=== PATIENT | male | born 1950 | race American Indian/Alaskan Native ===

== ENCOUNTER → 2018-01-29 | Outpatient (CLI) | payer MEDICARE ==
[2018-01-29 15:24] LABS: Basophils # (A) 0.1 k/uL (0-0.2); Basophils % (A) 1 %; Eosinophils # (A) 1.7 k/uL (0-0.7); Eosinophils % (A) 16 %; HCT 48.1 % (39.0-53.0); HGB 15.4 gm/dL (13.0-17.5); Lymphocytes # (A) 2.6 k/uL (1.0-4.8); Lymphocytes % (A) 24 %; MCH 29.3 pg (25.0-35.0); MCV 91.4 fL (80.0-100.0); Mean Platelet Volume 7.2; Monocytes # (A) 0.6 k/uL (0-1.0); Monocytes % (A) 6 %; Neutrophils # (A) 5.6 k/uL (1.3-7.7); Neutrophils % (A) 52 %; Platelet Count 251 k/uL (150-450); RBC 5.26 m/uL (4.30-5.90); RDW 13.4 % (11.5-15.5); WBC 10.7 k/uL (3.8-10.6)
[2018-01-29 15:36] LABS: Total Eosinophil Count 171 #EOS/uL (150-300)
== END | disposition home or self-care (01) ==
LOC: LABWHC1 14:59
PROVIDERS: ATTEND Internal Medicine Critical Care Medicine
DX: R06.09 Other forms of dyspnea (principal)
CPT/HCPCS: 36415; 82785; 85008; 85025

== ENCOUNTER → 2018-02-09 | Outpatient (CLI) | payer MEDICARE ==
[2018-02-09 15:55] LABS: Blood Urea Nitrogen 19 mg/dL (9-20)
--- NOTE | 2018-02-09 16:32 | CT ---
EXAMINATION TYPE: CT chest w con DATE OF EXAM: 02/09/2018 COMPARISON: None HISTORY: Dyspnea on exertion. CT DLP: 319.2 mGycm, Automated exposure control for dose reduction was used. CONTRAST: Performed injected with 100ml mL of Isovue 300. TECHNIQUE: Axial images were obtained at 5 mm thick sections. Reconstructed images are reviewed on [employer] computer in the coronal plane. FINDINGS: Portion of the thyroid visualized is normal. No suspicious lung nodules or focal infiltrates are present. No enlarged mediastinal or hilar adenopathy is evident. Couple small lymph nodes are present. The a scending aorta diameter at the level of the main pulmonary artery is 4.0 cm. This tapers throughout its visualized course. Vascular calcification is noted within the aorta. The main pulmonary artery di ameter at the bifurcation is 1.[address] sections are obtained through the upper abdomen. Abdomen is essentially unremarkable. Smal l hiatal hernia is present. IMPRESSIONS: 1. Ascending thoracic aortic aneurysm measuring 4.0 cm of the main pulmonary artery. 2. No acute pulmonary process.
== END | disposition home or self-care (01) ==
LOC: RADCTMAIN 15:32
PROVIDERS: ATTEND Internal Medicine Critical Care Medicine
DX: I71.2 Thoracic aortic aneurysm, without rupture (principal)
CPT/HCPCS: 82565; 84520; 71260; 36415; Q9967

== ENCOUNTER → 2018-07-29 | Outpatient (CLI) | payer MEDICARE ==
[2018-07-29 11:43] LABS: Basophils % (A) 0 %; Eosinophils # (A) 1.5 k/uL (0-0.7); Eosinophils % (A) 15 %; HCT 44.6 % (39.0-53.0); HGB 14.6 gm/dL (13.0-17.5); Lymphocytes # (A) 2.6 k/uL (1.0-4.8); Lymphocytes % (A) 26 %; MCHC 32.8 g/dL (31.0-37.0); MCV 91.5 fL (80.0-100.0); Mean Platelet Volume 7.9; Monocytes # (A) 0.6 k/uL (0-1.0); Monocytes % (A) 6 %; Neutrophils # (A) 5.1 k/uL (1.3-7.7); Neutrophils % (A) 51 %; Platelet Count 223 k/uL (150-450); RBC 4.88 m/uL (4.30-5.90)
[2018-07-29 11:46] LABS: Total Eosinophil Count 1493 #EOS/uL (150-300)
== END | disposition home or self-care (01) ==
LOC: LABWHC1 11:14
PROVIDERS: ATTEND Internal Medicine Critical Care Medicine
DX: J82 Pulmonary eosinophilia, not elsewhere classified (principal)
CPT/HCPCS: 36415; 82785; 85008; 85025

== ENCOUNTER → 2018-08-05 | Day surgery (SDC) | payer MEDICARE ==
[2018-08-03 15:58] VITALS: BMI 28.4
[~2018-08-05] MED LIST: LACTATED RINGERS 1,000 ML IV SCH; LIDOCAINE 1% INJ 10MG/ML (20 ML MDV) ONE; PROPOFOL 10 MG/ML 20 ML VIAL IV ONE
[2018-08-05 08:47] VITALS: TEMP 97.4
[2018-08-05 08:50] LABS: Glucose,Whole Blood 129 mg/dL (75-99)
[2018-08-05 09:11] VITALS: RESP 17
--- NOTE | 2018-08-05 09:21 | P.PCN ---
Date of Procedure: 08/05/18 Procedure(s) Performed: BRIEF HISTORY: Patient is a 68-year-old, pleasant, male, scheduled for an upper endoscopy as a part of surveillance of Rizvi's esophagus. He does have long- standing history of GERD and has been on Prilosec 20 mg daily. Last upper endoscopy in 2 years ago showed short segment Rizvi's esophagus with no dysplasia.. PROCEDURE PERFORMED: Esophagogastroduodenoscopy with biopsy. PREOPERATIVE DIAGNOSIS: Rizvi's esophagus/GERD. IV sedation per anesthesia. PROCEDURE: After informed consent was obtained, the patient was brought into the endoscopy unit. IV sedation was administered by Anesthesia under continuous monitoring. Initially the Olympus GIF-140 video endoscope was inserted into the mouth. Esophagus intubated without any difficulty. It was gradually advanced into the stomach and duodenum and carefully examined. The bulb and the second part of the duodenum appeared normal. The scope at this time was withdrawn to the stomach, adequately insufflated with air, and upon careful examination, mucosa of the antrum, P normal. In the gastric body there were multiple small polyps noted which was biopsied. The rest of the body, cardia and the fundus appeared normal. The scope was then withdrawn into the esophagus. The GE junction was located at 37 cm from the incisors. A short segment of Rizvi's esophagus extending proximal to the GE junction measuring about 3-4 mm in length and also couple of islands of Rizvi's-appearing mucosa which were all biopsied . The rest of the esophagus appeared normal. There were no erosions or ulcerations seen and the patient tolerated the procedure well. IMPRESSION: 1. Short segment Rizvi's esophagus status post biopsy. 2. Moderate size hiatal hernia. 3. Multiple small gastric polyps status post biopsy RECOMMENDATIONS: The findings of this examination were discussed with the patient as well as her family. He was advised to follow with the biopsies don't. If the biopsy confirms the presence of Rizvi's esophagus, he can have a repeat upper endoscopy in 2-3 years. He will continue with Prilosec 20 mg daily and follow antireflux measures.
[2018-08-05 09:32] VITALS: BP 112/60; PULSE 62
== END | disposition home or self-care (01) ==
LOC: ORWHC2ENDO 08:25
PROVIDERS: ATTEND Internal Medicine Gastroenterology
DX: K29.50 Unspecified chronic gastritis without bleeding (principal); K22.70 Barrett's esophagus without dysplasia; K31.7 Polyp of stomach and duodenum; K44.9 Diaphragmatic hernia without obstruction or gangrene; E11.9 Type 2 diabetes mellitus without complications; N40.0 Benign prostatic hyperplasia without lower urinary tract symptoms; I10 Essential (primary) hypertension; E78.5 Hyperlipidemia, unspecified; Z79.84 Long term (current) use of oral hypoglycemic drugs; Z79.899 Other long term (current) drug therapy; Z79.52 Long term (current) use of systemic steroids
CPT/HCPCS: 88305; 43239; J2001; J2704

== ENCOUNTER → 2019-04-29 | Outpatient (CLI) | payer MEDICARE ==
[2019-04-29 14:36] LABS: African American GFR (CKD) >90 (>60 ml/min/1.73 sqM); Anion Gap 10 mmol/L; Blood Urea Nitrogen 16 mg/dL (9-20); Calcium 9.9 mg/dL (8.4-10.2); Carbon Dioxide 29 mmol/L (22-30); Chloride 99 mmol/L (98-107); Glucose 131 mg/dL (74-99); Non-African American GFR(CKD) 89 (>60 ml/min/1.73 sqM); Sodium 138 mmol/L (137-145)
[2019-04-29 14:42] LABS: Potassium 5.6 mmol/L (3.5-5.1)
--- NOTE | 2019-04-29 15:19 | CT ---
EXAMINATION TYPE: CT angio chest DATE OF EXAM: 04/29/2019 COMPARISON: 02/09/2018 HISTORY: 68-year-old male follow-up Ascending thoracic aortic aneurysm. TECHNIQUE: Contiguous axial scanning of the chest performed without and with IV Contrast, patient inj ected with 100ml mL of Isovue 370. Coronal/sagittal MIP reconstructions performed. 3-D reconstruction s generated on a dedicated independent workstation. CT DLP: 618 mGycm Automated exposure control for dose reduction was used. FINDINGS: Heart normal size without pericardial effusion. Prominent epicardial fat pad on the left. Stable mild aneurysm ascending aorta at 4.0 cm. Mild atherosclerotic arch calcifications with convent ional branching anatomy. Initial noncontrast scan shows no evidence for acute intramural hematoma. No thoracic lymphadenopathy by CT size criteria. Some peribronchial cuffing centrally at the herson. No consolidation or pleural effusion. Small hiatal hernia. Hilar splenule. Cholecystectomy clips. 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 Stabl e scattered mild endplate deformities compatible with chronic injuries. Old healed fracture of the st ernal manubrium. IMPRESSION: 1. Stable mild 4 cm aneurysm of the ascending aorta. 2. Mild central bronchial wall thickening could reflect bronchitis or asthma. 3. Small hiatal hernia.
== END | disposition home or self-care (01) ==
LOC: RADCTMAIN 14:00
PROVIDERS: ATTEND Family Medicine
DX: I71.2 Thoracic aortic aneurysm, without rupture (principal); K44.9 Diaphragmatic hernia without obstruction or gangrene; R93.89 Abnormal findings on diagnostic imaging of other specified body structures; E11.42 Type 2 diabetes mellitus with diabetic polyneuropathy
CPT/HCPCS: 80048; 71275; 36415; Q9967

== ENCOUNTER → 2020-03-14 | Outpatient (CLI) | payer MEDICARE ==
[2020-03-14 08:42] LABS: Basophils # (A) 0.1 k/uL (0-0.2); Basophils % (A) 1 %; Eosinophils # (A) 0.1 k/uL (0-0.7); Eosinophils % (A) 1 %; HCT 44.1 % (39.0-53.0); HGB 14.8 gm/dL (13.0-17.5); Lymphocytes # (A) 1.8 k/uL (1.0-4.8); Lymphocytes % (A) 26 %; MCH 30.8 pg (25.0-35.0); MCHC 33.5 g/dL (31.0-37.0); MCV 91.8 fL (80.0-100.0); Mean Platelet Volume 7.6; Monocytes # (A) 0.5 k/uL (0-1.0); Monocytes % (A) 7 %; Neutrophils # (A) 4.4 k/uL (1.3-7.7); Neutrophils % (A) 63 %; Platelet Count 210 k/uL (150-450); RDW 12.8 % (11.5-15.5)
[2020-03-14 15:44] LABS: Albumin 4.6 g/dL (3.80-4.90); Albumin/Globulin Ratio 2.42 (1.60-3.17); Anion Gap 10.8 mmol/L (4.00-12.00); Calcium 9.6 mg/dL (8.7-10.3); Carbon Dioxide 27.2 mmol/L (21.6-31.8); Chol/HDL Ratio 2.89; Globulin 1.9 g/dL (1.6-3.3); LDL Cholesterol,Calculated 57.8 mg/dL (0.0-131.0); Non-African American GFR(CKD) 75.9 (60.0-200.0); Potassium 4.5 mmol/L (3.5-5.5); Total Bilirubin 0.7 mg/dL (0.3-1.2); Total Protein 6.5 g/dL (6.2-8.2); VLDL Calculation 27.2 mg/dL (5.00-40.00)
[2020-03-14 16:16] LABS: Hemoglobin A1C 6.5 % (4.0-6.0)
[2020-03-14 16:42] LABS: Urine Creatinine 118.4 mg/dL
== END | disposition home or self-care (01) ==
LOC: LABWHC1 07:43
PROVIDERS: ATTEND Family Medicine
DX: E11.9 Type 2 diabetes mellitus without complications (principal)
CPT/HCPCS: 36415; 80053; 80061; 82043; 82570; 83036; 85025

== ENCOUNTER 2021-04-25 08:42 | Day surgery (SDC) | payer MEDICARE ==
[2021-04-23 15:46] VITALS: BMI 26.6
--- NOTE | 2021-04-25 07:44 | P.GSHP ---
History of Present Illness H&P Date: 04/25/21 CHIEF COMPLAINT: Colon screen HISTORY OF PRESENT ILLNESS: The patient is a 70-year-old male who presents for colon screen. Lower endoscopy was offered for further evaluation and management. PAST MEDICAL HISTORY: Please see list. PAST SURGICAL HISTORY: Please see list. MEDICATIONS: Please see list. ALLERGIES: Please see list. SOCIAL HISTORY: No illicit drug use FAMILY HISTORY: No reports of Crohn disease or ulcerative colitis. REVIEW OF ORGAN SYSTEMS: CONSTITUTIONAL: No reports of fevers or chills. PHYSICAL EXAM: VITAL SIGNS: Stable GENERAL: Well-developed pleasant in no acute distress. HEENT: No scleral icterus. Extraocular movements grossly intact. Moist buccal mucosa. NECK: Supple without lymphadenopathy. CHEST: Unlabored respirations. Equal bilateral excursions. CARDIOVASCULAR: Regular rate and rhythm. Distal 2+ pulses. ABDOMEN: Soft, nontender, nondistended. MUSCULOSKELETAL: No clubbing, cyanosis, or edema. ASSESSMENT: 1. Colon screen. PLAN: 1. Recommend proceeding with a lower endoscopy Past Medical History Past Medical History: Asthma, GERD/Reflux, Seizure Disorder Additional Past Medical History / Comment(s): PAST HX OF SEIZURES, NONE FOR YEARS, NO MEDS, HAS HAD TO HAVE ESOPHAGUS DILATED IN PAST, NO DYSPHAGIA AT PRESENT History of Any Multi-Drug Resistant Organisms: None Reported Past Surgical History: Cholecystectomy, Hernia Repair Additional Past Surgical History / Comment(s): EGDs Past Anesthesia/Blood Transfusion Reactions: No Reported Reaction Smoking Status: Never smoker - Past Family History Sister(s) Family Medical History: Cancer Mother Additional Family Medical History / Comment(s): heart problems Medications and Allergies Home Medications Medication Instructions Recorded Confirmed Type Budesonide [Pulmicort] 1 applic INHALATION BID 12/10/13 04/25/21 History Calcium Carbonate/Vitamin D3 1 tab PO DAILY 12/10/13 04/25/21 History [Caltrate 600 + D Tablet] Omeprazole [PriLOSEC] 40 mg PO DAILY 12/10/13 04/25/21 History Simvastatin [Zocor] 40 mg PO DAILY 12/10/13 04/25/21 History Albuterol Sulfate [Proair Hfa] 1 - 2 puff INHALATION Q6HR PRN 08/03/18 04/25/21 History Tamsulosin [Flomax] 0.4 mg PO HS 08/03/18 04/25/21 History metFORMIN HCL [Glucophage] 1,000 mg PO BID 08/03/18 04/25/21 History Benralizumab [Fasenra] 30 mg SQ Q60D 04/23/21 04/25/21 History Cholecalciferol (Vitamin D3) 75 mcg PO DAILY 04/23/21 04/25/21 History [Vitamin D3 (3000 Iu)] Formoterol Fumarate [Perforomist] 20 mcg INHALATION BID 04/23/21 04/25/21 History Ipratropium-Albuterol Nebulize 3 ml INHALATION HS 04/23/21 04/25/21 History [Duoneb 0.5 mg-3 mg/3 ml Soln] lisinopriL [Zestril] 1 tab PO DAILY 04/25/21 04/25/21 History Allergies Allergy/AdvReac Type Severity Reaction Status Date / Time No Known Allergies Allergy Verified 04/25/21 07:19
--- NOTE | 2021-04-25 08:14 | P.OP ---
Date of Procedure: 04/25/21 Description of Procedure: PREOPERATIVE DIAGNOSIS: Colonoscopy screening POSTOPERATIVE DIAGNOSIS: Tubular adenoma midtransverse colon Sigmoid diverticulosis OPERATION: Colonoscopy to the ileocecal valve and appendiceal orifice, cecum Colonoscopy with hot snare polypectomy SURGEON: Amalia Myers MD. ANESTHESIA: MAC. INDICATIONS: The patient is an 70-year-old male who presents for screening. Last colonoscopy 10 years. Benefits and risks were described and informed consent was obtained. DESCRIPTION OF PROCEDURE: The patient had undergone Sutab prep. The patient had been brought into the operating room and laid in the left lateral decubitus position. After adequate intravenous sedation, the rectum was examined with 2% lidocaine jelly. The prostate was unremarkable. External hemorrhoids were encountered. The rectal tone was within normal limits. No lesions were palpated in the rectal vault. An Olympus colonoscope was advanced until the cecum, ileocecal valve and appendiceal orifice were clearly viewed. The prep was fair. Sigmoid diverticulosis was encountered. Colonic polyps were found and removed. No evidence of focal colitis was found. Retroflexion of the scope demonstrated grade 2 internal hemorrhoids without active bleeding or inflammation. The colon was desufflated. The patient had tolerated the procedure well. Withdrawal time was over 6 minutes. FINDINGS: Aronchick preparation quality scale 2 (1-5) Internal hemorrhoids, grade 2 External hemorrhoids, grade 2. No arteriovenous malformations. Sigmoid diverticulosis Removal of 1 polyps: - Snare polypectomy midtransverse colon, 5 mm tubulovillous adenoma polyp. No focal colitis. RECOMMENDATIONS: Repeat colonoscopy 5 years, 2025 Plan - Discharge Summary Discharge Rx Participant: No New Discharge Prescriptions: Continue Simvastatin [Zocor] 40 mg PO DAILY Omeprazole [PriLOSEC] 40 mg PO DAILY Calcium Carbonate/Vitamin D3 [Caltrate 600 Plus D3 Tablet] 1 tab PO DAILY Budesonide [Pulmicort] 1 applic INHALATION BID Albuterol Sulfate [Proair Hfa] 1 - 2 puff INHALATION Q6HR PRN PRN Reason: Wheezing Tamsulosin [Flomax] 0.4 mg PO HS metFORMIN HCL [Glucophage] 1,000 mg PO BID Ipratropium-Albuterol Nebulize [Duoneb 0.5 mg-3 mg/3 ml Soln] 3 ml INHALATION HS Cholecalciferol (Vitamin D3) [Vitamin D3 (3000 Iu)] 75 mcg PO DAILY Benralizumab [Fasenra] 30 mg SQ Q60D Formoterol Fumarate [Perforomist] 20 mcg INHALATION BID lisinopriL [Zestril] 1 tab PO DAILY Discharge Medication List Budesonide [Pulmicort] 1 applic INHALATION BID 12/10/13 [History] Calcium Carbonate/Vitamin D3 [Caltrate 600 Plus D3 Tablet] 1 tab PO DAILY 12/10/13 [History] Omeprazole [PriLOSEC] 40 mg PO DAILY 12/10/13 [History] Simvastatin [Zocor] 40 mg PO DAILY 12/10/13 [History] Albuterol Sulfate [Proair Hfa] 1 - 2 puff INHALATION Q6HR PRN 08/03/18 [History] Tamsulosin [Flomax] 0.4 mg PO HS 08/03/18 [History] metFORMIN HCL [Glucophage] 1,000 mg PO BID 08/03/18 [History] Benralizumab [Fasenra] 30 mg SQ Q60D 04/23/21 [History] Cholecalciferol (Vitamin D3) [Vitamin D3 (3000 Iu)] 75 mcg PO DAILY 04/23/21 [History] Formoterol Fumarate [Perforomist] 20 mcg INHALATION BID 04/23/21 [History] Ipratropium-Albuterol Nebulize [Duoneb 0.5 mg-3 mg/3 ml Soln] 3 ml INHALATION HS 04/23/21 [History] lisinopriL [Zestril] 1 tab PO DAILY 04/25/21 [History] Follow up Appointment(s)/Referral(s): Amalia Myers MD [STAFF PHYSICIAN] - As Needed Patient Instructions/Handouts: Colorectal Polyps (DC), Diverticulosis Diet (GEN), Diverticulosis (DC) Activity/Diet/Wound Care/Special Instructions: Repeat colonoscopy in 5 years, 2025 Discharge Disposition: HOME SELF-CARE
[2021-04-25 08:22] VITALS: TEMP 98.5
[~2021-04-25 08:42] MED LIST changes: +LIDOCAINE 1% (10MG/ML) FOR IV START INTRADERMA ONE; -LIDOCAINE 1% INJ 10MG/ML (20 ML MDV) ONE
[2021-04-25 08:48] VITALS: BP 110/68; PULSE 77; RESP 20
== END 2021-04-25 08:49 | disposition home or self-care (01) ==
LOC: ORWHC2ENDO 08:42
PROVIDERS: ATTEND Surgery Plastic and Reconstructive Surgery
DX: Z12.11 Encounter for screening for malignant neoplasm of colon (principal); K57.30 Diverticulosis of large intestine without perforation or abscess without bleeding; D12.3 Benign neoplasm of transverse colon; K64.1 Second degree hemorrhoids; K64.4 Residual hemorrhoidal skin tags; J44.9 Chronic obstructive pulmonary disease, unspecified; K21.9 Gastro-esophageal reflux disease without esophagitis; G40.909 Epilepsy, unspecified, not intractable, without status epilepticus; J45.909 Unspecified asthma, uncomplicated; I10 Essential (primary) hypertension; E78.5 Hyperlipidemia, unspecified; E11.9 Type 2 diabetes mellitus without complications; N40.0 Benign prostatic hyperplasia without lower urinary tract symptoms; Z79.84 Long term (current) use of oral hypoglycemic drugs; Z79.899 Other long term (current) drug therapy
CPT/HCPCS: 88305; 45385; J2704

== ENCOUNTER → 2021-09-26 | Outpatient (CLI) | payer MEDICARE ==
[2021-09-26 08:44] LABS: African American GFR (CKD) >90 (>60 ml/min/1.73 sqM); Blood Urea Nitrogen 17 mg/dL (9-20); Non-African American GFR(CKD) 86 (>60 ml/min/1.73 sqM)
--- NOTE | 2021-09-26 11:30 | CT ---
EXAMINATION TYPE: CT angio chest DATE OF EXAM: 09/26/2021 COMPARISON: CT dated 04/29/2019 HISTORY: Aneurysm, ascending aorta CT DLP: 620 mGy.cm. Automated Exposure Control for Dose Reduction was Utilized. TECHNIQUE AND CONTRAST: CTA scan of the thorax is performed without and with IV Contrast, patient injected with 100 ml mL of Isovue 370, thoracic aortic angiogram protocol. MIP Images are created on an independent workstatio n and reviewed. FINDINGS: Ascending aortic aneurysm measuring 4.3 cm compared to 4.[address] scan[address] Scattered arterial ath erosclerotic calcifications. Otherwise unremarkable remainder of the thoracic and upper abdominal aor ta without significant stenosis, occlusion, dissection or other aneurysm. Atherosclerotic yet patent visualized portion of the major mediastinal and upper abdominal arteries. No major or central pulmona ry embolism. No gross cardiomegaly. No pericardial effusion. Left basal linear pulmonary atelectasis. Grossly unremarkable lungs otherwise. Patent central airways . No pleural effusion. No pathologically enlarged lymph nodes in the chest. Previous cholecystectomy. Nonvisualized pancreatic body and tail, stable. Fecal loading of the visualized portion of the colon . Osteopenia. Degenerative changes of the thoracic spine. Suspected chronic healed fracture of the ma nubrium of the sternum. IMPRESSION: Ascending aortic aneurysm measuring 4.3 cm compared to 4.[address] scan[address] Other incidental findi ngs as described above.
== END | disposition home or self-care (01) ==
LOC: RADCTMAIN 08:01
PROVIDERS: ATTEND Family Medicine
DX: I71.2 Thoracic aortic aneurysm, without rupture (principal)
CPT/HCPCS: 82565; 84520; 71275; 36415; Q9967

== ENCOUNTER → 2023-03-24 | Outpatient (CLI) | payer MEDICARE ==
--- NOTE | 2023-03-24 14:50 | XR ---
EXAMINATION TYPE: XR chest 2V DATE OF EXAM: 03/24/2023 COMPARISON: 01/29/2018 HISTORY: Shortness of breath TECHNIQUE: Frontal and lateral views of the chest are obtained. FINDINGS: Scattered senescent parenchymal changes noted. Hyperinflation compatible with COPD. No evidence for infiltrate. No evidence for atelectasis. Heart size is stable. Mediastinal structures are stable and grossly unremarkable. No evidence for hilar prominence. Degenerative changes dorsal spine. IMPRESSION: 1. No evidence for acute pulmonary disease.
== END | disposition home or self-care (01) ==
LOC: RADXRMAIN 14:31
PROVIDERS: ATTEND Family Medicine
DX: R06.02 Shortness of breath (principal)
CPT/HCPCS: 71046

== ENCOUNTER → 2023-04-15 | Outpatient (CLI) | payer MEDICARE ==
[2023-04-15 09:18] LABS: African American GFR (CKD) >90 (>60 ml/min/1.73 sqM); Blood Urea Nitrogen 19 mg/dL (9-20); Non-African American GFR(CKD) 81 (>60 ml/min/1.73 sqM)
--- NOTE | 2023-04-15 10:11 | CT ---
EXAMINATION TYPE: CT angio chest DATE OF EXAM: 04/15/2023 9:52 AM COMPARISON: 525 HISTORY: thoracic aneurysm CT DLP: 784 mGycm Automated exposure control for dose reduction was used. CONTRAST: CTA scan of the thorax is performed without and with IV Contrast, patient injected with 100 mL of Iso luzmaria 370, pulmonary embolism protocol. . FINDINGS: LUNGS: The lungs are clear with no evidence of consolidative pneumonia. No suspicious pulmonary nodul es. Subsegmental areas of consolidation most of atelectasis. MEDIASTINUM: There is satisfactory enhancement of the pulmonary artery and its branches, there is no CT evidence for pulmonary embolism. There are no greater than 1 cm hilar or mediastinal lymph nodes. No pericardial effusion is seen. Suspect chronic healed fracture of the sternum. Minimal coronary artery calcification. AORTA: The ascending aorta measures 4.2 cm in greatest dimension and is stable given differences in t echnique. Calcification of the aortic valve noted. Mild atherosclerotic change aorta. ] OTHER: Multilevel hypertrophic and degenerative changes of the spine. Surgical clips in the gallblad erika fossa. Small hiatal hernia. The pancreatic body and tail not well seen IMPRESSION: 1. STABLE ASCENDING AORTIC ANEURYSM MEASURING 4.2 CM
== END | disposition home or self-care (01) ==
LOC: RADCTMAIN 08:31
PROVIDERS: ATTEND Family Medicine
DX: I71.21 Aneurysm of the ascending aorta, without rupture (principal)
CPT/HCPCS: 82565; 84520; 71275; 36415; Q9967

== ENCOUNTER → 2024-11-17 | Outpatient (CLI) | payer MEDICARE ==
[2024-11-17 07:46] LABS: African American GFR (CKD) >90 (>60 ml/min/1.73 sqM); Blood Urea Nitrogen 16 mg/dL (9-20); Non-African American GFR(CKD) 85 (>60 ml/min/1.73 sqM)
--- NOTE | 2024-11-17 09:28 | CT ---
EXAMINATION TYPE: CT angio chest DATE OF EXAM: 11/17/2024 8:49 AM COMPARISON: 04/15/2023 CLINICAL INDICATION: Male, 74 years old with history of I71.21 ASCENDING AORTIC ANEURYSM; ascending a ortic aneurysm TECHNIQUE/CONTRAST: CTA scan of the thorax is performed with IV Contrast, patient injected with 100 mL of Isovue 370, MIP images are created and reviewed these are created on a separate workstation.. CT DLP: 478 mGycm, Automated exposure control for dose reduction was used. FINDINGS: Lungs/Pleura: No evidence of focal consolidation, pleural effusion or pneumothorax. r nodule series 7 image 90. Groundglass appearance of the suprahilar region of the right lung is stable method 2022. R ight upper lobe 3 mm nodule series 6 image 40 Airway: Secretions layering in the trachea on the right Heart: Size within normal limits. Mild coronary artery calcifications present. Calcification of aort ic valve present. Vasculature: Ascending thoracic aorta dilation up to 39 mm which is within normal limits. No evidence for intramural hematoma on noncontrast imaging. No evidence of intimal flap to suggest dissection. N o aneurysm identified. Scattered atherosclerotic disease. There is no evidence for a filling defect w ithin the pulmonary vasculature to suggest acute pulmonary embolism. The pulmonary artery is of norm al size. Mediastinum: No gross evidence of adenopathy. Musculoskeletal: No acute osseous abnormalities Soft Tissues/lymph nodes: Unremarkable. Lower neck: No significant findings. Upper Abdomen: The gallbladder surgically absent. Scattered colonic diverticula. IMPRESSION: 1. Ascending thoracic aorta dilation up to 39 mm which is within normal limits. No evidence for aorti c aneurysm, dissection or occlusion. No evidence for pulmonary embolus in the central pulmonary vascu lature. 2. Scattered sub-6 mm parenchymal abnormality/small nodules. Consider yearly low-dose lung cancer scr eening patient meets criteria. Follow up recommendations for incidental pulmonary nodules, if there are any, are per [employer] or [employer]. https://radiopaedia.org/articles/oowscjvzgd-[email or web address]?lang=us [facility], , 11/17/2024 9:26 AM
== END | disposition home or self-care (01) ==
LOC: RADCTMAIN 06:59
DX: I71.21 Aneurysm of the ascending aorta, without rupture (principal)
CPT/HCPCS: 82565; 84520; 71275; 36415; Q9967